=== PATIENT | female | born 1985 | race Caucasian/White ===

== ENCOUNTER 2016-12-29 15:31 | Emergency (ER) | payer OTHER ==
[2016-12-29 15:42] VITALS: BP 127/77
[2016-12-29] MEDS ORDERED: Ketorolac 30 MG/ML SDV IVPUSH ONE (16:05)
[2016-12-29] MEDS ORDERED: Sodium Chloride 0.9% 10 ML Syringe FLUSH PRN (16:05)
[2016-12-29] MEDS ORDERED: HYDROmorphone 0.5 MG/0.5 ML Syringe IVPUSH ONE (16:06)
--- NOTE | 2016-12-29 16:12 | EDM.PDOC ---
ED HPI GENERAL MEDICAL PROBLEM - General Chief Complaint: Flank Pain Stated Complaint: POSS. KIDNEY STONE Time Seen by Provider: 12/29/16 15:51 Source of Information: Reports: Patient History Limitations: Reports: No Limitations - History of Present Illness INITIAL COMMENTS - FREE TEXT/NARRATIVE: Patient is a 31-year-old female presents ED complaining of right flank pain that wraps around to the right side. Patient had burning sensation this morning. At approximately 1330 patient experience severe discomfort to the right side rated a 10 out of 10. She was unable to get comfortable. She did take 1 Percocet tab from previous ER visit for kidney stones with mild relief. She also took Zofran just prior to arrival to the ED. Pain persists 7 out of 10. Consistent with previous episodes of kidney stones. Patient denies being . States has had a vasectomy. She denies any additional past medical history. She is taking no additional medications. Denies any smoking or recreational drug use. Alcohol use is social. She denies fever/chills, shows breath, chest pain, cough, or any additional complaints. Treatments EMULSION OPERATOR: Reports: Other (see below) Other Treatments EMULSION OPERATOR: percocet and zofran Right Flank Pain Score (Numeric/FACES): 7 - Related Data Allergies Allergy/AdvReac Type Severity Reaction Status Date / Time No Known Allergies Allergy Verified 06/06/14 05:10 Home Meds: Home Meds Acetaminophen/oxyCODONE [Percocet 325-5 MG] 1 each PO Q4HR PRN #20 tab 06/06/14 [Rx] Ondansetron [Zofran] 4 mg BUCCAL Q6H PRN #5 tab 06/06/14 [Rx] Tamsulosin HCl [Flomax] 0.4 mg PO DAILY #7 cap.er.24h 06/06/14 [Rx] Acetaminophen/HYDROcodone [[place] 325-5 MG] 1 tab PO Q6H PRN #12 tablet 12/29/16 [Rx] Nitrofurantoin Monohyd/M-Cryst [Macrobid 100 mg Capsule] 100 mg PO BID #10 capsule 12/29/16 [Rx] Past Medical History - Past Health History Medical/Surgical History: Denies Medical/Surgical History Social & Family History - Tobacco Use Smoking Status *Q: Never Smoker - Caffeine Use Caffeine Use: Reports: None - Alcohol Use Days Per Week of Alcohol Use: 0 - Recreational Drug Use Recreational Drug Use: No ED ROS GENERAL - Review of Systems Review Of Systems: See Below Constitutional: Denies: Fever, Decreased Appetite HEENT: Reports: No Symptoms Respiratory: Reports: No Symptoms Cardiovascular: Reports: No Symptoms GI/Abdominal: Reports: Abdominal Pain, Nausea. Denies: Black Stool, Bloody Stool, Constipation, Diarrhea, Decreased Appetite, Difficulty Swallowing, Distension, Flatus, Hematemesis, Hematochezia, Melena, Vomiting : Reports: Dysuria, Pain. Denies: Discharge, Flank Pain (Right-sided), Frequency, Hematuria, Urgency, Urinary Retention Musculoskeletal: Reports: Back Pain (Right lower back) Skin: Denies: Rash Neurological: Denies: Dizziness ED EXAM, GI/ABD - Physical Exam Exam: See Below Exam Limited By: No Limitations General Appearance: Alert, WD/WN, Mild Distress Ears: Hearing Grossly Normal Nose: Normal Inspection Throat/Mouth: Normal Voice, No Airway Compromise Neck: Normal Inspection, Supple Respiratory/Chest: No Respiratory Distress, Lungs Clear, Normal Breath Sounds, No Accessory Muscle Use, Chest Non-Tender Cardiovascular: Normal Peripheral Pulses, Regular Rate, Rhythm, No Murmur GI/Abdominal Exam: Normal Bowel Sounds, Soft, Non-Tender, No Organomegaly, No Distention (Female) Exam: Deferred Rectal (Female) Exam: Deferred Back Exam: Normal Inspection, Other (Right flank pain with palpation). No: CVA Tenderness (L), CVA Tenderness (R) Neurological: Alert, Oriented, CN II-XII Intact, Normal Cognition Psychiatric: Normal Affect, Normal Mood Skin Exam: Warm, Dry, Intact, Normal Color, No Rash Course - Vital Signs Last Recorded V/S: Last Vital Signs Temp 97.9 F 12/29/16 15:38 Pulse 76 12/29/16 15:38 Resp 16 12/29/16 15:38 BP 127/77 12/29/16 15:38 Pulse Ox 100 12/29/16 15:38 - Orders/Labs/Meds Orders: Active Orders 24 hr Category Date Time Status Peripheral IV Care [RC] . DIRECTED Care 12/29/16 16:06 Active Abdomen Pelvis wo Cont [CT] Stat Exams 12/29/16 17:41 Ordered Sodium Chloride 0.9% [Normal Saline] 1,000 ml Med 12/29/16 16:15 Active IV ASDIRECTED Sodium Chloride 0.9% [Saline Flush] Med 12/29/16 16:05 Active 10 ml FLUSH ASDIRECTED PRN Peripheral IV Insertion Adult [OM.PC] Stat Oth 12/29/16 16:05 Ordered Medication Orders Sodium Chloride (Normal Saline) 1,000 mls @ 250 mls/hr IV ASDIRECTED ORIN Last Admin: 12/29/16 16:15 Dose: 250 mls/hr Sodium Chloride (Saline Flush) 10 ml FLUSH ASDIRECTED PRN PRN Reason: Keep Vein Open Last Admin: 12/29/16 16:18 Dose: 10 ml Labs: Laboratory Tests 12/29/16 12/29/16 12/29/16 Range/Units 15:55 16:30 16:30 WBC 12.47 H (3.98-10.04) K/mm3 RBC 4.53 (3.98-5.22) M/mm3 Hgb 13.1 (11.2-15.7) gm/L Hct 38.4 (34.1-44.9) % MCV 84.8 (79.4-94.8) fl MCH 28.9 (25.6-32.2) pg MCHC 34.1 (32.2-35.5) g/dl RDW Std Deviation 38.8 (36.4-46.3) fL Plt Count 195 (182-369) K/mm3 MPV 9.6 (9.4-12.3) fl Neut % (Auto) 87.2 H (34.0-71.1) % Lymph % (Auto) 5.5 L (19.3-51.7) % [place] % (Auto) 6.7 (4.7-12.5) % Eos % (Auto) 0.3 L (0.7-5.8) Baso % (Auto) 0.1 (0.1-1.2) % Neut # (Auto) 10.87 H (1.56-6.13) K/mm3 Lymph # (Auto) 0.69 L (1.18-3.74) K/mm3 [place] # (Auto) 0.84 H (0.24-0.36) K/mm3 Eos # (Auto) 0.04 (0.04-0.36) K/mm3 Baso # (Auto) 0.01 (0.01-0.08) K/mm3 Manual Slide Review Normal smear Sodium 138 (136-145) mEq/L Potassium 3.8 (3.5-5.1) mEq/L Chloride 103 (98-107) mEq/L Carbon Dioxide 27 (21-32) mEq/L Anion Gap 11.8 (5-15) BUN 13 (7-18) mg/dL Creatinine 0.7 (0.55-1.02) mg/dL Est Cr Clr Drug Dosing 82.88 mL/min Estimated GFR (MDRD) > 60 (>60) mL/min BUN/Creatinine Ratio 18.6 H (14-18) Glucose 120 H (74-106) mg/dL Calcium 9.0 (8.5-10.1) mg/dL Total Bilirubin 0.6 (0.2-1.0) mg/dL AST 21 (15-37) U/L ALT 30 (14-59) U/L Alkaline Phosphatase 62 (46-116) U/L C-Reactive Protein 5.5 H* (<1.0) mg/dL Total Protein 7.2 (6.4-8.2) g/dl Albumin 3.8 (3.4-5.0) g/dl Globulin 3.4 gm/dL Albumin/Globulin Ratio 1.1 (1-2) HCG, Qual (NEGATIVE) Urine Color Light yellow (Yellow) Urine Appearance Slt cloudy H (Clear) Urine pH 6.5 (5.0-8.0) Ur Specific [place] 1.025 (1.005-1.030) Urine Protein Negative (Negative) Urine Glucose (UA) Negative (Negative) Urine Ketones Negative (Negative) Urine Occult Blood Trace-intact H (Negative) Urine Nitrite Negative (Negative) Urine Bilirubin Negative (Negative) Urine Urobilinogen 0.2 (0.2-1.0) Ur Leukocyte Esterase 1+ H (Negative) Urine RBC 5-10 H (0-5) /hpf Urine WBC 30-40 H (0-5) /hpf Ur Epithelial Cells 5-10 H (0-5) /hpf Urine Bacteria Moderate H (FEW) /hpf Urine Mucus Moderate H (FEW) /hpf 12/29/16 Range/Units 16:30 WBC (3.98-10.04) K/mm3 RBC (3.98-5.22) M/mm3 Hgb (11.2-15.7) gm/L Hct (34.1-44.9) % MCV (79.4-94.8) fl MCH (25.6-32.2) pg MCHC (32.2-35.5) g/dl RDW Std Deviation (36.4-46.3) fL Plt Count (182-369) K/mm3 MPV (9.4-12.3) fl Neut % (Auto) (34.0-71.1) % Lymph % (Auto) (19.3-51.7) % [place] % (Auto) (4.7-12.5) % Eos % (Auto) (0.7-5.8) Baso % (Auto) (0.1-1.2) % Neut # (Auto) (1.56-6.13) K/mm3 Lymph # (Auto) (1.18-3.74) K/mm3 [place] # (Auto) (0.24-0.36) K/mm3 Eos # (Auto) (0.04-0.36) K/mm3 Baso # (Auto) (0.01-0.08) K/mm3 Manual Slide Review Sodium (136-145) mEq/L Potassium (3.5-5.1) mEq/L Chloride (98-107) mEq/L Carbon Dioxide (21-32) mEq/L Anion Gap (5-15) BUN (7-18) mg/dL Creatinine (0.55-1.02) mg/dL Est Cr Clr Drug Dosing mL/min Estimated GFR (MDRD) (>60) mL/min BUN/Creatinine Ratio (14-18) Glucose (74-106) mg/dL Calcium (8.5-10.1) mg/dL Total Bilirubin (0.2-1.0) mg/dL AST (15-37) U/L ALT (14-59) U/L Alkaline Phosphatase (46-116) U/L C-Reactive Protein (<1.0) mg/dL Total Protein (6.4-8.2) g/dl Albumin (3.4-5.0) g/dl Globulin gm/dL Albumin/Globulin Ratio (1-2) HCG, Qual Negative (NEGATIVE) Urine Color (Yellow) Urine Appearance (Clear) Urine pH (5.0-8.0) Ur Specific [place] (1.005-1.030) Urine Protein (Negative) Urine Glucose (UA) (Negative) Urine Ketones (Negative) Urine Occult Blood (Negative) Urine Nitrite (Negative) Urine Bilirubin (Negative) Urine Urobilinogen (0.2-1.0) Ur Leukocyte Esterase (Negative) Urine RBC (0-5) /hpf Urine WBC (0-5) /hpf Ur Epithelial Cells (0-5) /hpf Urine Bacteria (FEW) /hpf Urine Mucus (FEW) /hpf Meds: Medications Generic Name Dose Route Start Last Admin Trade Name Freq PRN Reason Stop Dose Admin Sodium Chloride 1,000 mls @ 250 mls/hr 12/29/16 16:15 12/29/16 16:15 Normal Saline IV 250 mls/hr ASDIRECTED ORIN Administration Sodium Chloride 10 ml 12/29/16 16:05 12/29/16 16:18 Saline Flush FLUSH 10 ml ASDIRECTED PRN Administration Keep Vein Open Discontinued Medications Generic Name Dose Route Start Last Admin Trade Name Freq PRN Reason Stop Dose Admin Hydromorphone HCl 0.5 mg 12/29/16 16:06 12/29/16 16:14 Dilaudid IVPUSH 12/29/16 16:07 0.5 mg ONETIME ONE Administration Ketorolac Tromethamine 30 mg 12/29/16 16:05 12/29/16 16:13 Toradol IVPUSH 12/29/16 16:06 30 mg ONETIME ONE Administration - Re-Assessments/Exams Free Text/Narrative Re-Assessment/Exam: Peripheral IV was established with labs ordered include: CBC, chem 14, hCG, UA, and CRP. Ordered Dilaudid 0.5 mg IV. He, and toradol 30 mg IVP. Patient took Zofran 4 mg ODT just prior to arrival. 12/29/16 17:43Labs reviewed: White blood cell count 12.47, hemoglobin 13.1, neutrophil percentage is 87.2, neutrophil number is 10.87, Sodium 138, potassium 3.8, AG 11.8, creatinine 0.7, glucose 120, CRP 5.5, LFTs within normal limits, and hCG was negative. UA revealed appearance slightly cloudy, trace occult blood, nitrates negative, leukocyte esterase 1+, urine rbc's 5-10, urine wbc's 30-40, urine epithelial cells 5-10, urine bacteria moderate, urine mucus moderate. Appears possible contamination. Patient does have an symptoms associated with UTI. Will order a urine culture. CT abdomen and pelvis impression: Multiple low density lesions within the liver. Some of these appear to represent cysts but others are too small to accurately characterize. These findings is a significant interval change from previous exam. MRI liver recommended which should include postcontrast images. Several small nonobstructing stones within the right kidney. No ureteral dilatation or ureteral stone is seen. Nothing acute is appreciated on noncontrast CT study of the abdomen and pelvis. Due to findings of UA. I have ordered macrobid 100mg PO. Will discharge patient home with instructions as documented. Departure - Departure Time of Disposition: 19:07 Disposition: Home, Self-Care 01 Condition: Good Clinical Impression: UTI, Urinary tract infectious disease, Kidney stone, Liver lesion - Discharge Information Prescriptions: Acetaminophen/HYDROcodone [[place]ron 325-5 MG] 1 tab PO Q6H PRN #12 tablet PRN Reason: Pain (Severe 7-10) Nitrofurantoin Monohyd/M-Cryst [Macrobid 100 mg Capsule] 100 mg PO BID #10 capsule Instructions: Kidney Stones, [id number], Flank Pain, [id number], Pain Medicine Instructions, [id number] Referrals: Chloe Gu DO [Primary Care Provider] - Forms: ED Department Discharge, ED Return to Work/School Form Additional Instructions: CT revealed Multiple low density lesions within the liver. Some of these appear to represent cysts but others are too small to accurately characterize. These findings is a significant interval change from previous exam. MRI ordered to further delineate etiology. They will call you with appt time. In addition several small nonobstructing stones within the right kidney. No findings of stones are passing. UA did reveals findings concerning for UTI. Urine culture obtained. Will have you take macrobid 100mg twice a day for 5 days. If urine culture determines change in antibiotic is required you will be notified. Take ibuprofen 600mg every 6 hrs and tylenol 650mg every 6 hrs in alternating fashion. Push the fluids. For severe pain take norco 1 tab every 6 hours as needed. No driving this evening and while taking the norco. Utilize zofran as needed for nausea, 1 tab every 6 hrs. Followup with PCP I conclusion of antibiotics therapy to ensure resolution. After MRI has been obtained please follow up with PCP for results. Return to the ED for any new or worsening symptoms. - My Orders Last 24 Hours: My Active Orders 12/29/16 16:05 Sodium Chloride 0.9% [Saline Flush] 10 ml FLUSH ASDIRECTED PRN Peripheral IV Insertion Adult [OM.PC] Stat 12/29/16 16:06 Peripheral IV Care [RC] . DIRECTED 12/29/16 16:15 Sodium Chloride 0.9% [Normal Saline] 1,000 ml IV ASDIRECTED 12/29/16 17:41 Abdomen Pelvis wo Cont [CT] Stat - Assessment/Plan Last 24 Hours: My Active Orders 12/29/16 16:05 Sodium Chloride 0.9% [Saline Flush] 10 ml FLUSH ASDIRECTED PRN Peripheral IV Insertion Adult [OM.PC] Stat 12/29/16 16:06 Peripheral IV Care [RC] . DIRECTED 12/29/16 16:15 Sodium Chloride 0.9% [Normal Saline] 1,000 ml IV ASDIRECTED 12/29/16 17:41 Abdomen Pelvis wo Cont [CT] Stat
[2016-12-29] MEDS ORDERED: Sodium Chloride 0.9% 1,000 ML IV SCH (16:15)
--- NOTE | 2016-12-29 18:34 | CT ---
CT abdomen and pelvis Technique: Multiple axial sections were obtained from above the dome of the diaphragm inferiorly through the pubic symphysis. Intravenous and oral contrast not utilized. Study has been performed as a ureteral stone protocol. Comparison: Previous noncontrast CT study of . Findings: Innumerable low density lesions are seen throughout the liver. This represents a significant interval change from previous CT exam. Some of these have the appearance of cysts with others are less specific. Recommend MRI liver to further evaluate. Visualized lung bases shows minimal subpleural nodules within the left base believed to be stable. Nothing acute is seen within the lung bases. Spleen appears within normal limits. Adrenal glands show no nodule. Pancreas is within normal limits. Surgical clips are seen from prior cholecystectomy. Several small nonobstructing calculi are seen within the right kidney. No ureteral dilatation or ureteral stone is seen. Aorta shows no aneurysmal dilatation. No retroperitoneal adenopathy or mesenteric abnormalities are seen. No pelvic mass or adenopathy is seen. Small amount of free fluid is seen within the cul-de-sac which is felt to be incidental. No bowel dilatation is seen. Appendix not definitely visualized. No inflammatory change is seen. Bone window settings were reviewed which shows disc space narrowing at L4-L5. Impression: 1. Multiple low-density lesions within the liver. Some of these appear to represent cysts but others are too small to accurately characterize. This finding is a significant interval change from previous exam. MRI liver recommended which should include postcontrast images. 2. Several small nonobstructing stones within the right kidney. No ureteral dilatation or ureteral stone is seen. 3. Nothing acute is appreciated on noncontrast CT study of the abdomen and pelvis. Diagnostic code #9
[2016-12-29] MEDS ORDERED: Nitrofurantoin Monohydrate/Macrocrystalline 100 MG Cap PO ONE (19:04)
== END 2016-12-29 19:44 | disposition home or self-care (01) ==
LOC: JD.ED 15:31
DX: N39.0 Urinary tract infection, site not specified (principal); K76.9 Liver disease, unspecified; N20.0 Calculus of kidney; Z79.899 Other long term (current) drug therapy
CPT/HCPCS: 36415; 74176; 80053; 81001; 84703; 85025; 86140; 87086; 87088; 87186; 96361; 96374; 96375; 99284; J1170; J1885; J7040; J7050

== ENCOUNTER 2019-11-26 05:57 | Emergency (ER) | payer OTHER ==
--- NOTE | 2019-11-26 06:14 | EDM.PDOC ---
ED HPI GENERAL MEDICAL PROBLEM - General Chief Complaint: Abdominal Pain Stated Complaint: FLANK PAIN Time Seen by Provider: 11/26/19 06:08 - History of Present Illness INITIAL COMMENTS - FREE TEXT/NARRATIVE: 34-year-old female presents the emergency room with left-sided flank pain. Patient awoke this morning with what she thought was burning and frequency with urination. This was associated with some left-sided flank discomfort. The patient has not had any fevers or chills. No nausea no vomiting no constipation no diarrhea. Is a history of kidney stones. She has had 2 or 3 days in the past, her last 1 was several years ago. Abdominal Pain Score (Numeric/FACES): 3 - Related Data Allergies Allergy/AdvReac Type Severity Reaction Status Date / Time No Known Allergies Allergy Verified 11/26/19 06:07 Home Meds: Home Meds . [No Known Home Meds] 11/26/19 [History] Past Medical History - Past Health History Medical/Surgical History: Denies Medical/Surgical History Social & Family History - Caffeine Use Caffeine Use: Reports: None ED ROS GENERAL - Review of Systems Review Of Systems: See Below Constitutional: Reports: No Symptoms HEENT: Reports: No Symptoms Respiratory: Reports: No Symptoms Cardiovascular: Reports: No Symptoms GI/Abdominal: Reports: No Symptoms : Reports: Flank Pain, Frequency, Urgency Musculoskeletal: Reports: No Symptoms Skin: Reports: No Symptoms Neurological: Reports: No Symptoms ED EXAM, GI/ABD - Physical Exam Exam: See Below Exam Limited By: No Limitations General Appearance: Alert, No Apparent Distress Head: Atraumatic, Normocephalic Neck: Normal Inspection, Supple, Non-Tender, Full Range of Motion Respiratory/Chest: No Respiratory Distress, Lungs Clear, Normal Breath Sounds Cardiovascular: Regular Rate, Rhythm, No Edema, No Murmur GI/Abdominal Exam: Normal Bowel Sounds, Soft, Non-Tender Back Exam: Normal Inspection. No: CVA Tenderness (L), CVA Tenderness (R) Extremities: Normal Inspection, No Pedal Edema Neurological: Alert, Oriented, Normal Cognition Course - Vital Signs Last Recorded V/S: Last Vital Signs Temp 36.5 C 11/26/19 06:05 Pulse 65 11/26/19 06:05 Resp 15 11/26/19 06:05 BP 115/68 11/26/19 06:05 Pulse Ox 100 11/26/19 06:05 - Orders/Labs/Meds Orders: Active Orders 24 hr Category Date Time Status COMPREHENSIVE METABOLIC PN,CMP [CHEM] Stat Lab 11/26/19 06:14 Ordered CULTURE URINE [RM] Stat Lab 11/26/19 06:15 Received HCG QUALITATIVE,SERUM [CHEM] Stat Lab 11/26/19 06:15 Ordered Labs: Laboratory Tests 11/26/19 11/26/19 Range/Units 06:15 06:28 WBC 3.96 L (3.98-10.04) K/mm3 RBC 4.72 (3.98-5.22) M/mm3 Hgb 13.2 (11.2-15.7) gm/dl Hct 41.0 (34.1-44.9) % MCV 86.9 (79.4-94.8) fl MCH 28.0 (25.6-32.2) pg MCHC 32.2 (32.2-35.5) g/dl RDW Std Deviation 40.7 (36.4-46.3) fL Plt Count 257 (182-369) K/mm3 MPV 9.6 (9.4-12.3) fl Neut % (Auto) 50.7 (34.0-71.1) % Lymph % (Auto) 36.1 (19.3-51.7) % [place] % (Auto) 10.6 (4.7-12.5) % Eos % (Auto) 2.3 (0.7-5.8) Baso % (Auto) 0.3 (0.1-1.2) % Neut # (Auto) 2.01 (1.56-6.13) K/mm3 Lymph # (Auto) 1.43 (1.18-3.74) K/mm3 [place] # (Auto) 0.42 H (0.24-0.36) K/mm3 Eos # (Auto) 0.09 (0.04-0.36) K/mm3 Baso # (Auto) 0.01 (0.01-0.08) K/mm3 Urine Color Yellow (Yellow) Urine Appearance Slt cloudy H (Clear) Urine pH 6.5 (5.0-8.0) Ur Specific [place] 1.020 (1.005-1.030) Urine Protein Negative (Negative) Urine Glucose (UA) Negative (Negative) Urine Ketones Negative (Negative) Urine Occult Blood 2+ H (Negative) Urine Nitrite Positive H (Negative) Urine Bilirubin Negative (Negative) Urine Urobilinogen 0.2 (0.2-1.0) Ur Leukocyte Esterase Negative (Negative) Urine RBC 5-10 H (0-5) /hpf Urine WBC 5-10 H (0-5) /hpf Ur Squamous Epith Cells 10-20 H (0-5) /hpf Urine Bacteria Few (FEW) /hpf Urine Mucus Few (FEW) /hpf - Re-Assessments/Exams Free Text/Narrative Re-Assessment/Exam: 11/26/19 06:27 At the time of my initial exam the patient really had no palpable abdominal discomfort just some mild left-sided flank discomfort 11/26/19 06:58 Patient is improving over time. I looked at her urine and it is suggestive of a UTI with positive nitrates few bacteria and 5-10 WBCs. However when I walked into the room and saw the rest of the urine specimen it was very orange as it turns out the patient took Azo about an hour before coming in. The Azo can cause inaccurate urine results. However if she had a kidney stone it would not blunt the symptoms from this. Based on her initial symptoms we will put her on 5 days worth of Macrobid. She understands to return to the emergency room immediately with worsening symptoms Departure - Departure Time of Disposition: 07:01 Disposition: Home, Self-Care 01 Clinical Impression: UTI, Urinary tract infectious disease - Discharge Information Referrals: PCP,None [Primary Care Provider] - Forms: ED Department Discharge Additional Instructions: Return to the emergency room with any questions problems or worsening symptoms. You may well have a bladder infection, and have been started on Macrobid, this is an antibiotic. Take 1 twice daily until all gone. At this point you can continue the Azo but do not use it for more than 2 days. Sepsis Event Note (ED) - Evaluation Sepsis Screening Result: No Definite Risk - Focused Exam Vital Signs: Vital Signs Temp Pulse Resp BP Pulse Ox 11/26/19 06:05 36.5 C 65 15 115/68 100 - My Orders Last 24 Hours: My Active Orders 11/26/19 06:14 COMPREHENSIVE METABOLIC PN,CMP [CHEM] Stat 11/26/19 06:15 CULTURE URINE [RM] Stat HCG QUALITATIVE,SERUM [CHEM] Stat - Assessment/Plan Last 24 Hours: My Active Orders 11/26/19 06:14 COMPREHENSIVE METABOLIC PN,CMP [CHEM] Stat 11/26/19 06:15 CULTURE URINE [RM] Stat HCG QUALITATIVE,SERUM [CHEM] Stat
[2019-11-26] MEDS ORDERED: Nitrofurantoin Monohydrate/Macrocrystalline 100 MG Cap PO ONE (06:56)
[2019-11-26 07:47] VITALS: BP 120/68; PULSE 66
== END 2019-11-26 07:40 | disposition home or self-care (01) ==
LOC: JD.ED 05:57
DX: N39.0 Urinary tract infection, site not specified (principal)
CPT/HCPCS: 36415; 80053; 81001; 84703; 85025; 87086; 99284; A9270; 99282

== ENCOUNTER 2019-11-26 11:50 | Emergency (ER) | payer OTHER ==
[2019-11-26 12:05] VITALS: BP 142/83; PULSE 68
[2019-11-26] MEDS ORDERED: HYDROmorphone 0.5 MG/0.5 ML Syringe IM ONE (12:20)
[2019-11-26] MEDS ORDERED: Ondansetron 4 MG Tab.DIS PO ONE (12:20)
--- NOTE | 2019-11-26 12:27 | EDM.PDOC ---
ED HPI GENERAL MEDICAL PROBLEM - General Chief Complaint: Flank Pain Stated Complaint: FLANK PAIN Time Seen by Provider: 11/26/19 12:01 Source of Information: Reports: Patient, Old Records, RN Notes Reviewed History Limitations: Reports: No Limitations - History of Present Illness INITIAL COMMENTS - FREE TEXT/NARRATIVE: Patient is a 34-year-old female who presents to the ED for ongoing left-sided flank pain. She was evaluated in this ER, early this morning, was found to have a slight UTI, she notes that she did not get a CT scan. She does have a history of kidney stones, she states that the pain is very similar to kidney stones in the past. She states that around 11:30 AM, she was standing at the sink, and the pain just became suddenly intense. She became nauseated, and vomited once. She states that the pain is very similar to her other kidney stones in the past. She denies any fevers or chills, cough or shortness of breath. Laboratory evaluation this morning demonstrated that she was not , and her CBC was within normal limits. Left Flank Pain Score (Numeric/FACES): 10 - Related Data Allergies Allergy/AdvReac Type Severity Reaction Status Date / Time No Known Allergies Allergy Verified 11/26/19 06:07 Home Meds: Home Meds Acetaminophen/HYDROcodone [[place] 325-5 MG] 1 tab PO Q6H PRN #12 tablet 11/26/19 [Rx] Ondansetron [Zofran ODT] 4 mg PO Q8H PRN #10 tab.dis 11/26/19 [Rx] Past Medical History - Past Health History Medical/Surgical History: Denies Medical/Surgical History Gastrointestinal History: Reports: Other (See Below) Other Gastrointestinal History: polycystic liver disease [employer] History: Reports: Social & Family History - Tobacco Use Smoking Status *Q: Never Smoker - Caffeine Use Caffeine Use: Reports: Coffee - Recreational Drug Use Recreational Drug Use: No ED ROS GENERAL - Review of Systems Review Of Systems: Comprehensive ROS is negative, except as noted in HPI. ED EXAM, RENAL/ - Physical Exam Exam: See Below Exam Limited By: No Limitations General Appearance: Alert, WD/WN, No Apparent Distress (pt is balled up on the ER cot and does appear to be in a bit of pain.) Respiratory/Chest: No Respiratory Distress, Lungs Clear, Normal Breath Sounds, No Accessory Muscle Use, Chest Non-Tender Cardiovascular: Normal Peripheral Pulses, Regular Rate, Rhythm, No Murmur GI/Abdominal: Normal Bowel Sounds, Soft, Non-Tender, No Distention, No Mass Extremities: Normal Inspection, Normal Capillary Refill Neurological: Alert, Oriented, Normal Cognition, No Motor/Sensory Deficits Psychiatric: Normal Affect, Normal Mood Skin Exam: Warm, Dry, Intact, Normal Color, No Rash Course - Vital Signs Last Recorded V/S: Last Vital Signs Temp 97.7 F 11/26/19 12:04 Pulse 68 11/26/19 12:04 Resp 20 11/26/19 12:04 BP 142/83 H 11/26/19 12:04 Pulse Ox 100 11/26/19 12:04 - Orders/Labs/Meds Meds: Medications Discontinued Medications Generic Name Dose Route Start Last Admin Trade Name Raphaelq PRN Reason Stop Dose Admin Hydromorphone HCl 0.5 mg 11/26/19 12:20 11/26/19 12:27 Dilaudid IM 11/26/19 12:21 0.5 mg ONETIME ONE Administration Ondansetron HCl 4 mg 11/26/19 12:20 11/26/19 12:27 Zofran Odt PO 11/26/19 12:21 4 mg ONETIME ONE Administration Tamsulosin HCl 0.4 mg 11/26/19 13:22 Flomax PO 11/26/19 13:23 ONETIME ONE - Re-Assessments/Exams Free Text/Narrative Re-Assessment/Exam: 11/26/19 12:33 Patient presents to the ED for ongoing left-sided flank pain. Will order abdomen pelvis CT without contrast, give her some pain medications and nausea medications, and evaluate her for kidney stone at this time. 11/26/19 13:25 CT demonstrates a dilated left ureter as well as left kidney findings as noted above, with slight swelling and haziness. Which would be suggestive of possible pyelonephritis as well, but she has been started on Macrobid x5 days from the prior ER visit today. There is a small 2.3 mm stone within the left distal ureter close to the UVJ. She will be given a dose of Flomax in the ER as well for hopeful passage of the kidney stone. We will give her some pain meds and nausea meds for outpatient basis. And have her follow-up with primary care/urology if the stone has not passed in a week. Departure - Departure Time of Disposition: 13:26 Disposition: Home, Self-Care 01 Condition: Good Clinical Impression: Kidney stone on left side - Discharge Information *PRESCRIPTION DRUG MONITORING PROGRAM REVIEWED*: Yes *COPY OF PRESCRIPTION DRUG MONITORING REPORT IN PATIENT [place]: No Prescriptions: Acetaminophen/HYDROcodone [[place] 325-5 MG] 1 tab PO Q6H PRN #12 tablet PRN Reason: Pain Ondansetron [Zofran ODT] 4 mg PO Q8H PRN #10 tab.dis PRN Reason: Nausea Instructions: Kidney Stones, [id number], Dietary Guidelines to Help Prevent Kidney Stones Referrals: PCP,None [Primary Care Provider] - Forms: ED Department Discharge Additional Instructions: You were seen in the ER today for your ongoing left flank pain. Your CT did demonstrate a small 2.3 mm stone near your left UVJ, this should pass. You were given a prescription for a strong pain medication, hydrocodone/acet aminophen 5/325mg, please take 1 tab every 6 hours as needed for pain not relieved by Tylenol or ibuprofen alone. Please note this medication does contain Tylenol in it, so do not take more than 4000 mg in a 24-hour time span. These medications can be addictive, so please take as few as possible to achieve adequate pain control. These meds can also be quite constipating, recommend that you increase your oral fluid intake and take a stool softener like MiraLAX while taking these medications. Do not drive while taking this medication. Your prescriptions were electronically sent to [facility] located near [facility], this pharmacy is only open from 12 to 4 PM on Sundays, you will need to go there during this timeframe to obtain this medication and take as prescribed. You were given a prescription for Macrobid, at your first visit today. You will need to go to the pharmacy to fill these and take as directed. You were also given a few tablets of Zofran, antinausea medication to provide further nausea relief, please take 1 tab every 8 hours as needed for nausea. Please try to go home and increase your oral fluid intake as this will help facilitate the stones passing. You should strain your urine, to make sure that your stone has indeed passed. If you have not found a stone in your urine within the next week, you should follow-up with your primary care provider for a possible urological referral. Please return to the ER at any time if symptoms change or worsen. Sepsis Event Note (ED) - Evaluation Sepsis Screening Result: No Definite Risk - Focused Exam Vital Signs: Vital Signs Temp Pulse Resp BP Pulse Ox 11/26/19 12:04 97.7 F 68 20 142/83 H 100
[2019-11-26] MEDS ORDERED: Tamsulosin 0.4 MG Cap.ER PO ONE (13:22)
--- NOTE | 2019-11-26 13:22 | CT ---
CT abdomen and pelvis Technique: Multiple axial sections were obtained from above the dome of the diaphragm inferiorly through the pubic symphysis. Intravenous and oral contrast not utilized. Study has been performed as a ureteral stone protocol. Findings: Left kidney appears slightly swollen and shows slight haziness around the kidney. Left ureter is mildly prominent. These findings are felt to be caused by a distal obstructing stone measuring about 2.3 mm in size. No other abnormal calcifications are seen along the course of the ureters. Small nonobstructing calculi are seen within both kidneys. Visualized lung bases show nothing acute. Numerous small cystic areas are seen throughout both kidneys. Findings most likely represent numerous cysts from polycystic liver disease. Largest finding measurese about 1.0 cm. Surgical clips are seen from prior cholecystectomy. Spleen appears within normal limits. Small hiatal hernia is noted. Adrenal glands show no nodule. Pancreas shows no discrete abnormality. Aorta shows no aneurysm. No retroperitoneal adenopathy or mesenteric abnormalities are seen. No pelvic mass or adenopathy is seen. No free fluid is seen. Bone window settings were reviewed. Disc space narrowing is seen at L4-5. No acute osseous finding is appreciated. Impression: 1. Dilated left ureter as well as left kidney findings as noted above. These findings are caused by a small 2.3 mm stone within the distal left ureter close to the UVJ. 2. Nonobstructing calculi are noted within both kidneys. 3. Other findings believed to be nonacute as noted above. Diagnostic code #3 This report was dictated in MDT
== END 2019-11-26 13:35 | disposition home or self-care (01) ==
LOC: JD.ED 11:50
DX: N20.2 Calculus of kidney with calculus of ureter (principal)
CPT/HCPCS: 74176; 96372; 99284; A9270; J1170; 99283